=== PATIENT | male | born 1970 | race Caucasian/White ===

== ENCOUNTER → 2017-02-25 | Outpatient (CLI) | payer OTHER ==
[~2017-02-25] MED LIST: ALLO300T2 PO
[2017-02-25 16:35] LABS: BASO % 0.5 %; BASO ABS # 0.04 K/uL (0-0.2); COMPLETE YES; EOS % 2.9 %; HEMATOCRIT 46.7 % (42-52); IG% 0.3 %; LYMPH % 24.7 %; LYMPH ABS # 1.96 K/uL (1.2-3.4); MEAN CELL VOLUME 98.1 fL (80-100); MEAN CORPUSCULAR HEMOGLOBIN 33.6 pg (25-34); MEAN CORPUSCULAR HGB CONC 34.3 g/dl (32-36); MEAN PLATELET VOLUME 10.9 fL (7.4-10.4); MONO % 8.3 %; NEUT % 63.3 %; PLATELET COUNT 256 K/uL (130-400); RED BLOOD COUNT 4.76 M/uL (4.7-6.1); WHITE BLOOD COUNT 7.94 K/uL (4.8-10.8)
[2017-02-25 17:33] LABS: URIC ACID 7.8 mg/dl (2.6-7.2)
[2017-02-25 17:36] LABS: ALKALINE PHOSPHATASE 136 U/L (45-117); ALT/SGPT 36 U/L (12-78); AST/SGOT 24 U/L (15-37)
== END | disposition home or self-care (01) ==
LOC: C.LAB1850 14:33
PROVIDERS: ATTEND Internal Medicine Rheumatology
DX: M1A.9XX0 Chronic gout, unspecified, without tophus (tophi) (principal)

== ENCOUNTER 2017-03-22 13:35 | Emergency (ER) | payer OTHER ==
[~2017-03-22] VITALS: Ht 198.1 cm; Wt 116.0 kg
[2017-03-22 13:51] VITALS: TEMP 36.6; Ht 198.1 cm; Wt 116.0 kg
[2017-03-22] MEDS ORDERED: SODIUM CHLORIDE 0.9% 1000ML 1,000 ML IV STA (14:27)
[2017-03-22] MEDS ORDERED: ALLO300T2 PO (14:29)
[2017-03-22 14:45] VITALS: O2SAT 99
[2017-03-22 14:55] LABS: BASO % 0.7 %; BASO ABS # 0.07 K/uL (0-0.2); COMPLETE YES; EOS % 3.9 %; HEMATOCRIT 45.7 % (42-52); IG% 0.2 %; LYMPH % 20.4 %; LYMPH ABS # 2.15 K/uL (1.2-3.4); MEAN CELL VOLUME 96.8 fL (80-100); MEAN CORPUSCULAR HEMOGLOBIN 33.1 pg (25-34); MEAN CORPUSCULAR HGB CONC 34.1 g/dl (32-36); MEAN PLATELET VOLUME 10.5 fL (7.4-10.4); NEUT % 67.8 %; PLATELET COUNT 245 K/uL (130-400); RED BLOOD COUNT 4.72 M/uL (4.7-6.1); WHITE BLOOD COUNT 10.54 K/uL (4.8-10.8)
--- NOTE | 2017-03-22 15:09 | DIAGNOSTIC IMAGING REPORT ---
CHEST ONE VIEW PORTABLE CLINICAL HISTORY: Weakness. Chest tightness. COMPARISON STUDY: No previous studies for comparison. FINDINGS: Lung volumes are normal. There is no pneumothorax or pleural effusion. There is mild interstitial thickening. Cardiac size is normal. Mediastinal contours are normal. IMPRESSION: No definite acute cardiopulmonary findings. Slight interstitial thickening. Electronically signed by: Jesus Hoffman M.D. 03/22/2017 3:07 PM Dictated Date/Time: 03/22/2017 3:06 PM
[2017-03-22 15:12] LABS: CALCIUM 9.1 mg/dl (8.5-10.1)
[2017-03-22 15:17] LABS: ALT/SGPT 30 U/L (12-78); BLOOD UREA NITROGEN 15 mg/dl (7-18); BUN/CREATININE RATIO 15.3 (10-20); CARBON DIOXIDE 28 mmol/L (21-32); CHLORIDE 105 mmol/L (98-107); GLUCOSE 84 mg/dl (70-99); POTASSIUM 3.9 mmol/L (3.5-5.1); SODIUM 140 mmol/L (136-145)
--- NOTE | 2017-03-22 15:18 | DIAGNOSTIC IMAGING REPORT ---
CT OF THE HEAD WITHOUT CONTRAST CLINICAL HISTORY: Headache. Dizziness. COMPARISON STUDY: Head CT December 10, 2008. CT DOSE: 800.40 mGycm TECHNIQUE: Helical axial images of the head were obtained without IV contrast. Automated exposure control was utilized for the study. FINDINGS: No acute intracranial hemorrhage, midline shift or mass effect is present. Ventricular system is normal. Basilar cisterns are patent. There are no extra-axial collections. Jackson-white differentiation is maintained. There are no findings to suggest acute dural thrombosis or acute territorial infarct. There are no calvarial abnormalities. Visualized portions of the sinuses and mastoid air cells are clear. There is a previous right orbital floor reconstruction. IMPRESSION: No acute intracranial findings. Electronically signed by: Jesus Hoffman M.D. 03/22/2017 3:17 PM Dictated Date/Time: 03/22/2017 3:15 PM
[2017-03-22 15:22] LABS: ALKALINE PHOSPHATASE 138 U/L (45-117); AST/SGOT 25 U/L (15-37)
[2017-03-22] MEDS ORDERED: DiphenhydrAMINE HCL 50 MG/ML VIAL IV STA (15:25)
[2017-03-22] MEDS ORDERED: KETOROLAC TROMETHAMINE 30 MG/ML VIAL IV STA (15:25)
[2017-03-22 16:24] LABS: URINE APPEARANCE CLEAR (CLEAR); URINE BILIRUBIN NEG (NEG); URINE COLOR YELLOW; URINE NITRITE NEG (NEG); URINE PH 5.5 (4.5-7.5); URINE SPECIFIC GRAVITY 1.018 (1.000-1.030); UROBILINOGEN NEG (NEG)
[2017-03-22 16:26] LABS: LYME DISEASE AB IGG NEG (NEG); LYME DISEASE AB IGM NEG (NEG)
[2017-03-22 16:26] LABS: MANUAL MICROSCOPIC REQUIRED? NO; REVIEW REQ? NO
[2017-03-22 17:05] VITALS: BP 137/95; PULSE 65; O2SAT 99
--- NOTE | 2017-03-22 21:39 | EMERGENCY ROOM VISIT NOTE ---
History Report prepared by Enma: Prema Cruz Under the Supervision of: Dr. José Rondon D.O. First contact with patient: 14:26 Chief Complaint: DIZZY Stated Complaint: LIGHTHEADED Nursing Triage Summary: Pt states he was at work and got very dizzy and fell. Denies injury. States he had a similar occurance last , but blamed it on the heat. Pt c/o headache intermittently x 1 week. Hx migraines. Feels like there's water in my ear x 1 month Sore left wrist and fingers x 1 week, unsure of injury. Works as a [employer] Patient c/o left ankle soreness. Has had 7 ticks on him this spring. History of Present Illness The patient is a 47 year old male who presents to the Emergency Room with complaints of an episode of lightheadedness after lunch today. He works as a [employer] and was at work today when this episode occurred. He went to retrieve a ladder when he suddenly started to feel lightheaded. He was leaning up against the ladder and fell to the ground. He was there for about 30 minutes. He was able to move, but when he tried to get up he would feel lightheaded again. The room was not spinning. He had a similar episode last week, but attributed it the hot weather. The weather was not as hot today so he came to the ED as he was concerned about his lightheadedness. He did not lose consciousness and remembers falling to the ground. He reports that his ear has been feeling abnormal, as though there is water in it. His ear is not ringing. Two weeks ago , he started having wrist pain and 2 days ago he started having left ankle pain. He has a history of gout. He has no redness or swelling. He has had several tick bites recently, but reports no rash. He denies any weakness or numbness in the arms or legs. He denies any chest pain, SOB, nausea, vomiting, diarrhea, dysuria. He has had an intermittent headache for the past week. He has a history of migraines and states his current headaches feel like his migraines. He denies any history of hypertension, diabetes, high cholesterol, or heart disease. Source of History: patient Onset: earlier today Position: other (global) Quality: other (lightheadedness) Timing: other (episodic) Associated Symptoms: + headache, No LOC, No SOB, No chest pain, No diarrhea , No nausea, No numbness, No vomiting, No weakness Note: Pt reports wrist pain, ankle pain. Pt denies room spinning, dysuria. Review of Systems See HPI for pertinent positives & negatives. A total of 10 systems reviewed and were otherwise negative. Past Medical & Surgical Medical Problems: (1) Gout (2) Migraines Family History FH: cancer Social History Smoking Status: Current Every Day Smoker Marital Status: Housing Status: lives with significant other Occupation Status: employed Current/Historical Medications Scheduled Allopurinol (Zyloprim), 300 MG PO DAILY Allergies Coded Allergies: No Known Allergies (Verified , 03/22/17) Physical Exam Vital Signs Date Time Temp Pulse Resp B/P Pulse Ox O2 Delivery O2 Flow Rate FiO2 03/22/17 17:05 65 18 137/95 99 Room Air 03/22/17 14:59 66 03/22/17 14:50 61 139/88 66 140/99 69 151/100 03/22/17 14:45 99 Room Air 03/22/17 13:51 36.6 71 16 137/97 96 Room Air Physical Exam GENERAL: sitting up in chair, alert, well appearing, well nourished, no distress , non-toxic EYE EXAM: normal conjunctiva, PERRL and EOM's intact OROPHARYNX: no exudate, no erythema, lips, buccal mucosa, and tongue normal and mucous membranes are moist NECK: supple, no nuchal rigidity, no adenopathy, non-tender LUNGS: Clear to auscultation. Normal chest wall mechanics HEART: no murmurs, S1 normal and S2 normal ABDOMEN: abdomen soft, non-tender, normo-active bowel sounds, no masses, no rebound or guarding. BACK: Back is symmetrical on inspection and there is no deformity, no midline tenderness, no CVA tenderness. SKIN: no rashes and no bruising UPPER EXTREMITIES: upper extremities are grossly normal. LOWER EXTREMITIES: No pitting edema. NEURO EXAM: Normal sensorium, cranial nerves II-XII intact, normal speech, no weakness of arms, no weakness of legs. No drift. Finger to nose intact. Gross sensation intact. Medical Decision & Procedures ER Provider Diagnostic Interpretation: Xray results as stated below per my and the radiologist's interpretation. Radiology results as stated below per my review and the radiologist's interpretation: CHEST ONE VIEW PORTABLE CLINICAL HISTORY: Weakness. Chest tightness. COMPARISON STUDY: No previous studies for comparison. FINDINGS: Lung volumes are normal. There is no pneumothorax or pleural effusion. There is mild interstitial thickening. Cardiac size is normal. Mediastinal contours are normal. IMPRESSION: No definite acute cardiopulmonary findings. Slight interstitial thickening. Electronically signed by: Jesus Hoffman M.D. 03/22/2017 3:07 PM Dictated Date/Time: 03/22/2017 3:[address] OF THE HEAD WITHOUT CONTRAST CLINICAL HISTORY: Headache. Dizziness. COMPARISON STUDY: Head CT December 10, 2008. CT DOSE: 800.40 mGycm TECHNIQUE: Helical axial images of the head were obtained without IV contrast. Automated exposure control was utilized for the study. FINDINGS: No acute intracranial hemorrhage, midline shift or mass effect is present. Ventricular system is normal. Basilar cisterns are patent. There are no extra-axial collections. Jackson-white differentiation is maintained. There are no findings to suggest acute dural thrombosis or acute territorial infarct. There are no calvarial abnormalities. Visualized portions of the sinuses and mastoid air cells are clear. There is a previous right orbital floor reconstruction. IMPRESSION: No acute intracranial findings. Electronically signed by: Jesus Hoffman M.D. 03/22/2017 3:17 PM Dictated Date/Time: 03/22/2017 3:15 PM Laboratory Results 03/22/17 14:45 Red Blood Count 4.72, Mean Corpuscular Volume 96.8, Mean Corpuscular Hemoglobin 33.1, Mean Corpuscular Hemoglobin Concent 34.1, Mean Platelet Volume 10.5, Neutrophils (%) (Auto) 67.8, Lymphocytes (%) (Auto) 20.4, Monocytes (%) (Auto) 7.0, Eosinophils (%) (Auto) 3.9, Basophils (%) (Auto) 0.7, Neutrophils # (Auto) 7.15, Lymphocytes # (Auto) 2.15, Monocytes # (Auto) 0.74, Eosinophils # (Auto) 0.41, Basophils # (Auto) 0.07 03/22/17 14:45 Test 03/22/17 14:42 03/22/17 14:45 03/22/17 16:20 Bedside Glucose 81 mg/dl (70-99) White Blood Count 10.54 K/uL (4.8-10.8) Red Blood Count 4.72 M/uL (4.7-6.1) Hemoglobin 15.6 g/dL (14.0-18.0) Hematocrit 45.7 % (42-52) Mean Corpuscular Volume 96.8 fL (80-100) Mean Corpuscular Hemoglobin 33.1 pg (25-34) Mean Corpuscular Hemoglobin Concent 34.1 g/dl (32-36) Platelet Count 245 K/uL (130-400) Mean Platelet Volume 10.5 fL (7.4-10.4) Neutrophils (%) (Auto) 67.8 % Lymphocytes (%) (Auto) 20.4 % Monocytes (%) (Auto) 7.0 % Eosinophils (%) (Auto) 3.9 % Basophils (%) (Auto) 0.7 % Neutrophils # (Auto) 7.15 K/uL (1.4-6.5) Lymphocytes # (Auto) 2.15 K/uL (1.2-3.4) Monocytes # (Auto) 0.74 K/uL (0.11-0.59) Eosinophils # (Auto) 0.41 K/uL (0-0.5) Basophils # (Auto) 0.07 K/uL (0-0.2) RDW Standard Deviation 43.2 fL (36.4-46.3) RDW Coefficient of Variation 12.3 % (11.5-14.5) Immature Granulocyte % (Auto) 0.2 % Immature Granulocyte # (Auto) 0.02 K/uL (0.00-0.02) Anion Gap 7.0 mmol/L (3-11) Est Creatinine Clear Calc Drug Dose 132.2 ml/min Estimated GFR () 104.1 Estimated GFR (Non- 89.9 BUN/Creatinine Ratio 15.3 (10-20) Calcium Level 9.1 mg/dl (8.5-10.1) Total Bilirubin 0.4 mg/dl (0.2-1) Direct Bilirubin 0.1 mg/dl (0-0.2) Aspartate Amino Transf (AST/SGOT) 25 U/L (15-37) Alanine Aminotransferase (ALT/SGPT) 30 U/L (12-78) Alkaline Phosphatase 138 U/L (45-117) Troponin I < 0.015 ng/ml (0-0.045) Total Protein 7.7 gm/dl (6.4-8.2) Albumin 3.9 gm/dl (3.4-5.0) Lyme Disease IgG Antibody NEG (NEG) Lyme Disease IgM Antibody NEG (NEG) Urine Color YELLOW Urine Appearance CLEAR (CLEAR) Urine pH 5.5 (4.5-7.5) Urine Specific Rudolph 1.018 (1.000-1.030) Urine Protein NEG (NEG) Urine Glucose (UA) NEG (NEG) Urine Ketones NEG (NEG) Urine Occult Blood NEG (NEG) Urine Nitrite NEG (NEG) Urine Bilirubin NEG (NEG) Urine Urobilinogen NEG (NEG) Urine Leukocyte Esterase NEG (NEG) Laboratory results per my review. Medications Administered Medications (Trade) Dose Ordered Sig/Chris Route Start Time Stop Time Status Last Admin Dose Admin Sodium Chloride (Nss 1000ml) 1,000 ml @ 999 mls/hr Q1H1M STAT IV 03/22/17 14:27 03/22/17 15:27 DC 03/22/17 14:55 999 MLS/HR Ketorolac Tromethamine (Toradol Inj) 30 mg NOW STAT IV 03/22/17 15:25 03/22/17 15:26 DC 03/22/17 15:33 30 MG Diphenhydramine HCl (Benadryl Inj) 50 mg NOW STAT IV 03/22/17 15:25 03/22/17 15:26 DC 03/22/17 15:33 50 MG ECG Indication: other (dizziness) Rate (beats per minute): 60 Rhythm: sinus rhythm Findings: other (normal axis, early R-wave progression, normal intervals) ED Course ED COURSE: Vital signs were reviewed and showed normal vitals. The patients medical record was reviewed The above diagnostic studies were performed and reviewed. ED treatments and interventions as stated above. 1431: The patient was evaluated in room B5. A complete history and physical examination was performed. 1427: NSS 1000 ml @ 999 mls/hr IV. 1525: Benadryl Inj 50 mg IV, Toradol Inj 30 mg IV. 1627: I reevaluated the patient. He is doing well. I updated him on the results. 1707: Upon reevaluation, the patient is resting comfortably.I discussed my findings with the patient and he understands and agrees with the treatment plan. Based on the patients age, coexisting illnesses, exam and lab findings the decision to treat as an outpatient was made. The patient remained stable while under my care. The patient appeared well at the time of discharge. Medical Decision Differential diagnosis includes etiologies such as benign positional vertigo, dehydration, hypovolemia, anemia, tumor, infection, hypoglycemia, electrolyte abnormalities, cardiac sources, intracerebral event, toxicologic, neurologic, as well as others were entertained. Patient is a 47-year-old male who presents the ER following a near syncopal event. He has had one these events before early last week. He notes that he did not pass out. He does complain of sensitivity of his right ear and that his joints are fairly sore. He has had migratory arthralgias. He also admits to a headache behind his right eye which has been coming and going intermittently over the past week. The headache restarted again this morning and gradually worsened. No focal deficit. He is completely neurologically intact. CBC along with BMP, LFTs, bilirubin and troponin are normal. UA and Lyme is negative. EKG is unremarkable. CT head and chest x-ray were unremarkable. Patient was updated regards to his findings. He was able to ambulate without difficulty and was discharged follow-up with his primary care doctor tomorrow. He may benefit from Holter monitor but I deferred this to his primary care doctor. Discussed with Pt concerning signs and symptoms to watch out for. Pt was instructed to follow up with their PCP and discussed with the patient their option to return to the ED at anytime for persistent or worsening symptoms. The appropriate anticipatory guidance and out-patient management, including indications for return to the emergency department, were explained at length to the patient and understood. Impression Primary Impression: Near syncope Additional Impression: Arthralgia Scribe Attestation The scribe's documentation has been prepared under my direction and personally reviewed by me in its entirety. I confirm that the note above accurately reflects all work, treatment, procedures, and medical decision making performed by me. Departure Information Dispostion Home / Self-Care Referrals No Doctor, Assigned (PCP) Faisal Orellana PA-C Forms HOME CARE DOCUMENTATION FORM, IMPORTANT VISIT INFORMATION Patient Instructions ED Near Syncope Unkn, My [facility] Additional Instructions Please follow up with your primary care doctor with in the next 24 hours. Any worsening of your symptoms, please return to the ED immediately. This includes fevers greater than 100.4, persistent nausea/vomiting, passing out, chest pain, shortness breath or any other concerning signs or symptoms from your standpoint. Problem Qualifiers Additional Impression: Arthralgia Joint pain location: unspecified Qualified Codes: M25.50 - Pain in unspecified joint
== END 2017-03-22 17:13 | disposition home or self-care (01) ==
LOC: C.EDB 13:36
DX: R55 Syncope and collapse (principal); M25.50 Pain in unspecified joint; M10.9 Gout, unspecified; G43.909 Migraine, unspecified, not intractable, without status migrainosus; F17.210 Nicotine dependence, cigarettes, uncomplicated; Z79.899 Other long term (current) drug therapy

== ENCOUNTER 2017-10-08 21:24 | Emergency (ER) | payer OTHER ==
[~2017-10-08] VITALS: Ht 190.5 cm; Wt 117.5 kg
[2017-10-08 21:37] VITALS: TEMP 36.3; Ht 190.5 cm; Wt 117.5 kg
[2017-10-08] MEDS ORDERED: XYLOCAINE 1%/SOD BICARB 20 ML VIAL INFIL ONE (21:45)
[2017-10-08] MEDS ORDERED: IBUP-1450 PO (22:39)
[2017-10-08] MEDS ORDERED: CEPH500C PO (23:27)
[2017-10-08 23:28] VITALS: BP 115/78; PULSE 89; O2SAT 93
[2017-10-08] MEDS ORDERED: CEPHALEXIN 500MG HOME PACK 1 EA BTL PO ONE (23:30)
[2017-10-08] MEDS ORDERED: BACITRACIN OINT 15 GM TUBE EXT ONE (23:30)
--- NOTE | 2017-10-08 23:52 | EMERGENCY ROOM VISIT NOTE ---
History First contact with patient: 21:44 Chief Complaint: LACERATION/CUT (SUT/DERMABOND) Stated Complaint: HEAD NEEDS STITCHES Nursing Triage Summary: head lac s/p fall History of Present Illness The patient is a 47 year old male who presents to the Emergency Room with complaints of facial injury after tripping and falling while walking down a dark path at [facility]. The patient denies any loss of consciousness, neck pain or other significant injuries. He rates his discomfort a 3 out of 10. Tetanus immunization is up-to-date. The patient denies any blurred vision, epistaxis or dental trauma. Review of Systems 6 system review was performed and was negative except for pertinent positives and negatives as indicated in history of present illness Past Medical/Surgical History Medical Problems: (1) Gout (2) Migraines Family History FH: cancer Social History Smoking Status: Current Every Day Smoker Marital Status: Housing Status: lives with significant other Occupation Status: employed Current/Historical Medications Scheduled Allopurinol (Zyloprim), 300 MG PO DAILY Cephalexin Monohydrate (Keflex), 500 MG PO TID Ibuprofen (Motrin), 600 MG PO TID Physical Exam Vital Signs Date Time Temp Pulse Resp B/P (MAP) Pulse Ox O2 Delivery O2 Flow Rate FiO2 10/08/17 23:28 89 16 115/78 93 10/08/17 21:37 36.3 83 16 133/83 93 Room Air Physical Exam CONSTITUTIONAL: Healthy and well nourished. Alert and oriented X 3 with positive affect. HEENT: Examination shows a 5.5 cm laceration of the right central forehead region.. He has other generalized abrasions of the nose, facial region and chin. No septal hematoma or deviation. No subconjunctival hemorrhage, hemotympanum, raccoon's eyes or Das sign. No focal tenderness to palpation of the facial bones. Pupils equal, round and reactive. OROPHARYNX: No dental trauma or other intraoral lacerations noted. NECK: Full active range of motion without discomfort. MUSCULOSKELETAL: Full range of motion of all joints without discomfort. INTEGUMENTARY: No rash or other significant dermatologic conditions noted. NEUROLOGIC: Facial sensations are intact. Medical Decision & Procedures Medications Administered Medications (Trade) Dose Ordered Sig/Chris Route Start Time Stop Time Status Last Admin Dose Admin Bacitracin (Bacitracin Oint) 1 appln NOW ONCE EXT 10/08/17 23:30 10/08/17 23:31 DC 10/08/17 23:27 1 APPLN Cephalexin Monohydrate (Keflex 500MG Home Pack) 1 homepack NOW ONCE PO 10/08/17 23:30 10/08/17 23:31 DC 10/08/17 23:27 1 HOMEPACK Procedure Laceration repair was performed under local anesthesia after receiving verbal consent from the patient. Using buffered 1% lidocaine without epinephrine, good local anesthesia was administered. It was peripherally cleansed with iodine, then the wound was irrigated with normal saline. The patient did have some debris around the periphery of the wound, but no significant wound contamination. The wound was in approximated using 5-0 nylon simple interrupted sutures. Bacitracin dressing was applied. ED Course Patient history and physical exam were performed. Nurse's notes were reviewed. Vital signs were reviewed and were normal. The patient refused any analgesics. Laceration repair was performed under local anesthesia. The patient was provided additional verbal and written wound care instructions. Ice for swelling. Ibuprofen and Tylenol in alternating fashion as needed for pain. The patient was provided a home pack and prescription for Keflex to hopefully minimize risk for infection. Suture removal in 5-7 days, or seek reevaluation sooner for any signs of wound infection. The patient was happy with plan of care, voiced understanding of all discharge instructions, and denied any significant pain at the conclusion of my exam. Medical Decision Medication Reconcilliation Current Medication List: was personally reviewed by la Blood Pressure Screening Patient's blood pressure: Normal blood pressure Impression Primary Impression: Facial laceration Additional Impression: Fall from slip, trip, or stumble Departure Information Dispostion Home / Self-Care Prescriptions Cephalexin Monohydrate (Keflex) 500 Mg Cap 500 MG PO TID for 6 Days, #18 CAP Prov: Brent Sevilla PA 10/08/17 Forms HOME CARE DOCUMENTATION FORM, IMPORTANT VISIT INFORMATION Patient Instructions My [facility] Additional Instructions Keep wound clean and dry. Do not allow any crusting or dried blood to accumulate on sutures. If this occurs, use a 1:1 solution of hydrogen peroxide/ water on a Q-tip to clean the wound. Use an antibiotic ointment for 3 days, then let wound dry. Suture removal in 5-7 days. Return sooner for any signs of infection (increasing redness, swelling, drainage). Ice for swelling. Ibuprofen 600 mg and Tylenol 1000 mg every 6 hrs for pain. Take Keflex 500 mg every 8 hours for 7 days. Problem Qualifiers Primary Impression: Facial laceration Encounter type: initial encounter Qualified Codes: S01.81XA - Laceration without foreign body of other part of head, initial encounter Additional Impression: Fall from slip, trip, or stumble Encounter type: initial encounter Qualified Codes: W01.0XXA - Fall on same level from slipping, tripping and stumbling without subsequent striking against object, initial encounter
== END 2017-10-08 23:28 | disposition home or self-care (01) ==
LOC: C.EDB 21:26 → C.EDD 23:28
DX: S01.81XA Laceration without foreign body of other part of head, initial encounter (principal); W01.0XXA Fall on same level from slipping, tripping and stumbling without subsequent striking against object, initial encounter; Y92.821 Forest as the place of occurrence of the external cause; M10.9 Gout, unspecified; G43.909 Migraine, unspecified, not intractable, without status migrainosus; F17.210 Nicotine dependence, cigarettes, uncomplicated; Z79.899 Other long term (current) drug therapy; Z80.9 Family history of malignant neoplasm, unspecified